=== PATIENT | female | born 1945 | race Caucasian/White ===

== ENCOUNTER 2016-04-12 12:16 | Inpatient (IN) | payer MEDICARE ==
[2016-04-12] MEDS ORDERED: ALBUTEROL NEB 2.5 MG/3 ML INH STA ×3 (14:53→17:39)
[2016-04-12] MEDS ORDERED: ALBUTEROL NEB 2.5 MG/3 ML INH ONE ×4 (15:12→17:53)
[2016-04-12] MEDS ORDERED: IOPAMIDOL-300 100 ML VIAL IVP ONE (16:41)
[2016-04-12] MEDS ORDERED: ACETAMINOPHEN 325 MG TABLET PO ONE (17:10)
[2016-04-12] MEDS ORDERED: ACETAMINOPHEN 325 MG TABLET PO STA ×2 (17:12→17:13)
[2016-04-12] MEDS ORDERED: methylPREDNISolone SUCCINATE 125 MG/2 ML VIAL IVP STA (17:24)
[2016-04-12] MEDS ORDERED: methylPREDNISolone SUCCINATE 125 MG/2 ML VIAL IVP ONE (17:33)
[2016-04-12] MEDS ORDERED: ONDANSETRON 4 MG/2 ML VIAL IVP PRN (18:54)
[2016-04-12] MEDS: IPRATROPIUM/ALBUTEROL 3 ML NEB INH SCH ×2 (19:18→23:50)
[2016-04-12] MEDS: SODIUM CHLORIDE 0.9% 1,000 ML IV SCH ×2 (20:33→21:01)
[2016-04-12] MEDS: INSULIN ASPART 300 UNIT/3 ML PEN SUBQ SCH (20:41)
[2016-04-12] MEDS ORDERED: TEMAZEPAM 15 MG CAPSULE PO PRN (20:46)
[2016-04-12] MEDS: SODIUM CHLORIDE FLUSH 0.9% 10 ML SYRINGE IVP SCH (21:02)
[2016-04-12] MEDS: BUDESONIDE 0.5 MG/2 ML NEB INH SCH (23:50)
[2016-04-13] MEDS: methylPREDNISolone SUCCINATE 125 MG/2 ML VIAL IVP SCH ×2 (05:18→17:31)
[2016-04-13] MEDS: SODIUM CHLORIDE FLUSH 0.9% 10 ML SYRINGE IVP SCH ×3 (05:18→17:31)
[2016-04-13] MEDS: POTASSIUM CHLOR 10 MEQ/100 ML 100 ML IV SCH ×3 (06:25→08:28)
[2016-04-13] MEDS ORDERED: BENZOCAINE/MENTHOL LOZENGE MM PRN (06:33)
[2016-04-13] MEDS ORDERED: PHENOL THROAT SPRAY 177 ML MM PRN (06:33)
[2016-04-13] MEDS: BUDESONIDE 0.5 MG/2 ML NEB INH SCH ×2 (07:10→21:24)
[2016-04-13] MEDS: IPRATROPIUM/ALBUTEROL 3 ML NEB INH SCH ×3 (07:10→21:24)
[2016-04-13] MEDS: ENOXAPARIN 40 MG/0.4 ML SYRINGE SUBQ SCH (08:21)
[2016-04-13] MEDS: INSULIN ASPART 300 UNIT/3 ML PEN SUBQ SCH ×4 (08:21→20:57)
[2016-04-13] MEDS: FUROSEMIDE 20 MG TABLET PO SCH (08:22)
[2016-04-13] MEDS: POLYETHYLENE GLYCOL 3350 17 GM PACKET PO SCH (08:22)
[2016-04-13] MEDS ORDERED: SODIUM CHLORIDE INHALATION 3 ML NEB ONE (10:45)
[2016-04-13] MEDS: LEVALBUTEROL 1.25 MG INH PRN (10:50)
[2016-04-14] MEDS: IPRATROPIUM/ALBUTEROL 3 ML NEB INH SCH ×4 (01:00→20:00)
[2016-04-14] MEDS: SODIUM CHLORIDE FLUSH 0.9% 10 ML SYRINGE IVP SCH ×3 (05:25→17:34)
[2016-04-14] MEDS: methylPREDNISolone SUCCINATE 125 MG/2 ML VIAL IVP SCH ×2 (05:25→17:34)
[2016-04-14] MEDS: ACETAMINOPHEN 325 MG TABLET PO PRN (06:18)
[2016-04-14] MEDS: FUROSEMIDE 20 MG TABLET PO SCH (08:08)
[2016-04-14] MEDS: INSULIN ASPART 300 UNIT/3 ML PEN SUBQ SCH ×4 (08:09→20:49)
[2016-04-14] MEDS: ENOXAPARIN 40 MG/0.4 ML SYRINGE SUBQ SCH (08:09)
[2016-04-14] MEDS: POLYETHYLENE GLYCOL 3350 17 GM PACKET PO SCH (08:10)
[2016-04-14] MEDS ORDERED: AZITHROMYCIN 250 MG TABLET PO STA (08:45)
[2016-04-14] MEDS ORDERED: AZITHROMYCIN 250 MG TABLET PO SCH (09:00)
[2016-04-14] MEDS: BUDESONIDE 0.5 MG/2 ML NEB INH SCH ×2 (09:10→20:00)
[2016-04-14] MEDS ORDERED: INSULIN ASPART 300 UNIT/3 ML PEN SUBQ SCH (11:33)
[2016-04-15] MEDS: IPRATROPIUM/ALBUTEROL 3 ML NEB INH SCH ×2 (00:05→13:00)
[2016-04-15] MEDS: methylPREDNISolone SUCCINATE 125 MG/2 ML VIAL IVP SCH ×2 (06:25→17:10)
[2016-04-15] MEDS: SODIUM CHLORIDE FLUSH 0.9% 10 ML SYRINGE IVP SCH ×3 (06:42→20:58)
[2016-04-15] MEDS ORDERED: LABETALOL 20 MG/4 ML SYRINGE IVP ONE (07:11)
[2016-04-15] MEDS: INSULIN ASPART 300 UNIT/3 ML PEN SUBQ SCH ×4 (08:39→20:57)
[2016-04-15] MEDS: AZITHROMYCIN 250 MG TABLET PO SCH (08:40)
[2016-04-15] MEDS: FUROSEMIDE 20 MG TABLET PO SCH (08:40)
[2016-04-15] MEDS: ENOXAPARIN 40 MG/0.4 ML SYRINGE SUBQ SCH (08:40)
[2016-04-15] MEDS: POLYETHYLENE GLYCOL 3350 17 GM PACKET PO SCH (08:40)
[2016-04-15] MEDS: CALCIUM CARBONATE CHEW 500 MG TABLET PO SCH ×2 (10:34→20:56)
[2016-04-15] MEDS: CHOLECALCIFEROL 1,000 UNIT TABLET PO SCH (10:34)
[2016-04-15] MEDS: BUDESONIDE 0.5 MG/2 ML NEB INH SCH (13:00)
[2016-04-15] MEDS: SACCHAROMYCES BOULARDII 250 MG CAPSULE PO SCH (17:09)
[2016-04-15] MEDS: ACETAMINOPHEN 325 MG TABLET PO PRN (18:01)
[2016-04-15] MEDS: LEVALBUTEROL 1.25 MG INH PRN (18:22)
[2016-04-16] MEDS: SODIUM CHLORIDE FLUSH 0.9% 10 ML SYRINGE IVP SCH ×3 (05:27→22:53)
[2016-04-16] MEDS: methylPREDNISolone SUCCINATE 125 MG/2 ML VIAL IVP SCH (05:27)
[2016-04-16] MEDS: BUDESONIDE 0.5 MG/2 ML NEB INH SCH ×3 (07:00→22:38)
[2016-04-16] MEDS: IPRATROPIUM/ALBUTEROL 3 ML NEB INH SCH ×5 (07:00→22:39)
[2016-04-16] MEDS: INSULIN ASPART 300 UNIT/3 ML PEN SUBQ SCH ×4 (08:33→22:52)
[2016-04-16] MEDS: SACCHAROMYCES BOULARDII 250 MG CAPSULE PO SCH ×2 (08:34→17:29)
[2016-04-16] MEDS: CALCIUM CARBONATE CHEW 500 MG TABLET PO SCH ×2 (08:34→22:51)
[2016-04-16] MEDS: AZITHROMYCIN 250 MG TABLET PO SCH (08:34)
[2016-04-16] MEDS: POLYETHYLENE GLYCOL 3350 17 GM PACKET PO SCH (08:35)
[2016-04-16] MEDS: ENOXAPARIN 40 MG/0.4 ML SYRINGE SUBQ SCH (08:35)
[2016-04-16] MEDS: CHOLECALCIFEROL 1,000 UNIT TABLET PO SCH (08:35)
[2016-04-16] MEDS: ACETAMINOPHEN 325 MG TABLET PO PRN (08:51)
[2016-04-16] MEDS ORDERED: DEXTROSE 50% ABBOJECT 25 GM/50 ML SYRINGE IVP PRN (15:29)
[2016-04-16] MEDS ORDERED: GLUCAGON 1 MG/ML VIAL SUBQ PRN (15:29)
[2016-04-16] MEDS ORDERED: DEXTROSE 5% 1,000 ML IV PRN (15:29)
[2016-04-16] MEDS ORDERED: DEXTROSE GEL 37.5 GM TUBE PO PRN (15:29)
[2016-04-16] MEDS ORDERED: SODIUM CHLORIDE 0.9% 1,000 ML IV SCH (17:00)
[2016-04-16] MEDS ORDERED: INSULIN GLARGINE 300 UNIT/3 ML PEN SUBQ SCH (21:00)
[2016-04-17] MEDS: BUDESONIDE 0.5 MG/2 ML NEB INH SCH ×3 (00:21→20:00)
[2016-04-17] MEDS: IPRATROPIUM/ALBUTEROL 3 ML NEB INH SCH ×5 (00:25→20:00)
[2016-04-17] MEDS: SODIUM CHLORIDE FLUSH 0.9% 10 ML SYRINGE IVP PRN (00:28)
[2016-04-17] MEDS: ACETAMINOPHEN 325 MG TABLET PO PRN ×3 (00:28→21:02)
[2016-04-17] MEDS: SODIUM CHLORIDE FLUSH 0.9% 10 ML SYRINGE IVP SCH ×3 (06:45→20:55)
[2016-04-17] MEDS: SACCHAROMYCES BOULARDII 250 MG CAPSULE PO SCH ×2 (08:58→17:10)
[2016-04-17] MEDS: INSULIN ASPART 300 UNIT/3 ML PEN SUBQ SCH ×4 (08:58→20:54)
[2016-04-17] MEDS: predniSONE 20 MG TABLET PO SCH (08:58)
[2016-04-17] MEDS: CHOLECALCIFEROL 1,000 UNIT TABLET PO SCH (08:59)
[2016-04-17] MEDS: ENOXAPARIN 40 MG/0.4 ML SYRINGE SUBQ SCH (08:59)
[2016-04-17] MEDS: CALCIUM CARBONATE CHEW 500 MG TABLET PO SCH ×2 (08:59→20:52)
[2016-04-17] MEDS: AZITHROMYCIN 250 MG TABLET PO SCH (08:59)
[2016-04-17] MEDS: POLYETHYLENE GLYCOL 3350 17 GM PACKET PO SCH (08:59)
[2016-04-17] MEDS ORDERED: INSULIN GLARGINE 300 UNIT/3 ML PEN SUBQ SCH (21:00)
[2016-04-17] MEDS: guaiFENesin/DEXTROMETHORPHAN 10 ML UDC PO PRN (21:03)
[2016-04-17] MEDS ORDERED: DEXTROSE GEL 37.5 GM TUBE PO PRN (23:43)
[2016-04-17] MEDS ORDERED: GLUCAGON 1 MG/ML VIAL SUBQ PRN (23:43)
[2016-04-17] MEDS ORDERED: DEXTROSE 50% ABBOJECT 25 GM/50 ML SYRINGE IVP PRN (23:43)
[2016-04-17] MEDS ORDERED: DEXTROSE 5% 1,000 ML IV PRN (23:43)
[2016-04-18] MEDS: ACETAMINOPHEN 325 MG TABLET PO PRN ×2 (01:19→05:03)
[2016-04-18] MEDS: SODIUM CHLORIDE FLUSH 0.9% 10 ML SYRINGE IVP SCH ×3 (05:03→21:45)
[2016-04-18] MEDS: IPRATROPIUM/ALBUTEROL 3 ML NEB INH SCH ×2 (08:21→12:45)
[2016-04-18] MEDS: BUDESONIDE 0.5 MG/2 ML NEB INH SCH ×2 (08:21→22:15)
[2016-04-18] MEDS: AZITHROMYCIN 250 MG TABLET PO SCH (10:04)
[2016-04-18] MEDS: SACCHAROMYCES BOULARDII 250 MG CAPSULE PO SCH ×2 (10:04→17:55)
[2016-04-18] MEDS: CALCIUM CARBONATE CHEW 500 MG TABLET PO SCH ×2 (10:04→21:42)
[2016-04-18] MEDS: predniSONE 20 MG TABLET PO SCH (10:05)
[2016-04-18] MEDS: ENOXAPARIN 40 MG/0.4 ML SYRINGE SUBQ SCH (10:05)
[2016-04-18] MEDS: POLYETHYLENE GLYCOL 3350 17 GM PACKET PO SCH (10:05)
[2016-04-18] MEDS: CHOLECALCIFEROL 1,000 UNIT TABLET PO SCH (10:05)
[2016-04-18] MEDS: INSULIN ASPART 300 UNIT/3 ML PEN SUBQ SCH ×4 (10:06→21:43)
[2016-04-18] MEDS ORDERED: ALBUTEROL NEB 2.5 MG/3 ML INH PRN (16:12)
[2016-04-18] MEDS: LEVALBUTEROL 1.25 MG INH SCH ×2 (16:59→22:15)
[2016-04-18] MEDS: IPRATROPIUM 0.2 MG/ML NEB INH SCH ×2 (16:59→22:15)
[2016-04-18] MEDS: INSULIN GLARGINE 300 UNIT/3 ML PEN SUBQ SCH (21:44)
[2016-04-18] MEDS: guaiFENesin/DEXTROMETHORPHAN 10 ML UDC PO PRN (21:44)
[2016-04-18] MEDS ORDERED: SODIUM CHLORIDE INHALATION 3 ML NEB ONE (21:57)
[2016-04-19] MEDS: IPRATROPIUM 0.2 MG/ML NEB INH SCH ×4 (02:45→20:00)
[2016-04-19] MEDS: LEVALBUTEROL 1.25 MG INH SCH ×4 (02:45→20:00)
[2016-04-19] MEDS: SODIUM CHLORIDE FLUSH 0.9% 10 ML SYRINGE IVP SCH ×3 (06:34→21:44)
[2016-04-19] MEDS: POLYETHYLENE GLYCOL 3350 17 GM PACKET PO SCH (08:44)
[2016-04-19] MEDS: ACETAMINOPHEN 325 MG TABLET PO PRN (08:46)
[2016-04-19] MEDS: ENOXAPARIN 40 MG/0.4 ML SYRINGE SUBQ SCH (08:46)
[2016-04-19] MEDS: predniSONE 20 MG TABLET PO SCH (08:47)
[2016-04-19] MEDS: CHOLECALCIFEROL 1,000 UNIT TABLET PO SCH (08:47)
[2016-04-19] MEDS: CALCIUM CARBONATE CHEW 500 MG TABLET PO SCH ×2 (08:47→21:42)
[2016-04-19] MEDS: AZITHROMYCIN 250 MG TABLET PO SCH (08:47)
[2016-04-19] MEDS: SACCHAROMYCES BOULARDII 250 MG CAPSULE PO SCH ×2 (08:47→17:27)
[2016-04-19] MEDS: INSULIN ASPART 300 UNIT/3 ML PEN SUBQ SCH ×4 (08:48→21:42)
[2016-04-19] MEDS: BUDESONIDE 0.5 MG/2 ML NEB INH SCH ×2 (10:20→20:00)
[2016-04-19] MEDS: CIPROFLOXACIN 400 MG/200 ML 200 ML IV SCH (14:41)
[2016-04-19] MEDS: INSULIN GLARGINE 300 UNIT/3 ML PEN SUBQ SCH (21:43)
[2016-04-20] MEDS: IPRATROPIUM 0.2 MG/ML NEB INH SCH ×4 (01:00→20:00)
[2016-04-20] MEDS: LEVALBUTEROL 1.25 MG INH SCH ×4 (01:00→20:00)
[2016-04-20] MEDS: CIPROFLOXACIN 400 MG/200 ML 200 ML IV SCH ×2 (02:29→18:48)
[2016-04-20] MEDS: SODIUM CHLORIDE FLUSH 0.9% 10 ML SYRINGE IVP PRN (02:30)
[2016-04-20] MEDS: ACETAMINOPHEN 325 MG TABLET PO PRN (05:04)
[2016-04-20] MEDS: SODIUM CHLORIDE FLUSH 0.9% 10 ML SYRINGE IVP SCH ×3 (06:07→21:45)
[2016-04-20] MEDS: BUDESONIDE 0.5 MG/2 ML NEB INH SCH ×2 (07:27→20:00)
[2016-04-20] MEDS: INSULIN ASPART 300 UNIT/3 ML PEN SUBQ SCH ×4 (08:17→21:44)
[2016-04-20] MEDS: CALCIUM CARBONATE CHEW 500 MG TABLET PO SCH ×2 (09:25→21:45)
[2016-04-20] MEDS: CHOLECALCIFEROL 1,000 UNIT TABLET PO SCH (09:26)
[2016-04-20] MEDS: SACCHAROMYCES BOULARDII 250 MG CAPSULE PO SCH ×2 (09:26→17:51)
[2016-04-20] MEDS: FAMOTIDINE 20 MG TABLET PO SCH ×2 (09:26→21:44)
[2016-04-20] MEDS: ENOXAPARIN 40 MG/0.4 ML SYRINGE SUBQ SCH (09:27)
[2016-04-20] MEDS: POLYETHYLENE GLYCOL 3350 17 GM PACKET PO SCH (09:27)
[2016-04-20] MEDS: predniSONE 20 MG TABLET PO SCH (09:31)
[2016-04-20] MEDS: INSULIN GLARGINE 300 UNIT/3 ML PEN SUBQ SCH (21:44)
[2016-04-21] MEDS: LEVALBUTEROL 1.25 MG INH SCH ×3 (00:45→15:47)
[2016-04-21] MEDS: IPRATROPIUM 0.2 MG/ML NEB INH SCH ×3 (00:45→15:46)
[2016-04-21] MEDS: CIPROFLOXACIN 400 MG/200 ML 200 ML IV SCH (02:15)
[2016-04-21] MEDS: SODIUM CHLORIDE FLUSH 0.9% 10 ML SYRINGE IVP PRN (02:16)
[2016-04-21] MEDS: SODIUM CHLORIDE FLUSH 0.9% 10 ML SYRINGE IVP SCH (06:59)
[2016-04-21] MEDS: INSULIN ASPART 300 UNIT/3 ML PEN SUBQ SCH (08:37)
[2016-04-21] MEDS: CHOLECALCIFEROL 1,000 UNIT TABLET PO SCH (08:43)
[2016-04-21] MEDS: FAMOTIDINE 20 MG TABLET PO SCH (08:44)
[2016-04-21] MEDS: predniSONE 20 MG TABLET PO SCH (08:44)
[2016-04-21] MEDS: CALCIUM CARBONATE CHEW 500 MG TABLET PO SCH (08:45)
[2016-04-21] MEDS: ENOXAPARIN 40 MG/0.4 ML SYRINGE SUBQ SCH (08:45)
[2016-04-21] MEDS: POLYETHYLENE GLYCOL 3350 17 GM PACKET PO SCH (08:45)
[2016-04-21] MEDS: SACCHAROMYCES BOULARDII 250 MG CAPSULE PO SCH (08:45)
[2016-04-21] MEDS: BUDESONIDE 0.5 MG/2 ML NEB INH SCH (09:25)
== END 2016-04-21 13:50 | DRG 189 ==
DX: J96.21 Acute and chronic respiratory failure with hypoxia (principal); J44.9 Chronic obstructive pulmonary disease, unspecified; R09.02 Hypoxemia; I50.9 Heart failure, unspecified; E78.00 Pure hypercholesterolemia, unspecified; M19.90 Unspecified osteoarthritis, unspecified site; J15.8 Pneumonia due to other specified bacteria; J44.0 Chronic obstructive pulmonary disease with (acute) lower respiratory infection; E11.9 Type 2 diabetes mellitus without complications; R53.81 Other malaise; Z99.81 Dependence on supplemental oxygen; F32.9 Major depressive disorder, single episode, unspecified; K43.9 Ventral hernia without obstruction or gangrene; Z66 Do not resuscitate; Z86.718 Personal history of other venous thrombosis and embolism; G89.29 Other chronic pain; M54.9 Dorsalgia, unspecified; M16.0 Bilateral primary osteoarthritis of hip; E66.9 Obesity, unspecified; Z68.35 Body mass index [BMI] 35.0-35.9, adult; E78.5 Hyperlipidemia, unspecified; H40.9 Unspecified glaucoma; R35.0 Frequency of micturition; Z87.891 Personal history of nicotine dependence; Z85.3 Personal history of malignant neoplasm of breast; Z79.84 Long term (current) use of oral hypoglycemic drugs; Z79.51 Long term (current) use of inhaled steroids; Z79.899 Other long term (current) drug therapy; Z51.5 Encounter for palliative care

== ENCOUNTER 2016-04-21 | Outpatient (CLI) | payer MEDICARE | END 2016-04-21 13:47 | CPT/HCPCS: A0170; A0425; A0428 ==

== ENCOUNTER 2018-02-10 08:04 | Outpatient (CLI) | payer MEDICARE | END 2018-02-10 08:05 | disposition EMS.NT | LOC: EMS 08:04 | PROVIDERS: ATTEND Surgery | DX: M25.559 Pain in unspecified hip (principal); W10.8XXA Fall (on) (from) other stairs and steps, initial encounter; Y92.009 Unspecified place in unspecified non-institutional (private) residence as the place of occurrence of the external cause ==

== ENCOUNTER 2018-02-16 08:28 | Outpatient (CLI) | payer MEDICARE | END 2018-02-16 08:29 | disposition critical access hospital (66) | LOC: EMS 08:28 | PROVIDERS: ATTEND Surgery | DX: R06.02 Shortness of breath (principal) | CPT/HCPCS: A0425; A0427 ==

== ENCOUNTER 2018-02-16 09:15 | Inpatient (IN) | payer MEDICARE ==
[2018-02-16] MEDS ORDERED: IPRATROPIUM/ALBUTEROL 3 ML NEB INH STA (11:03)
--- NOTE | 2018-02-16 11:30 | XRAY Report ---
Reason: Dyspnea Procedure Date: 02/16/2018 Accession Number: [id number] / [id number] Procedure: XR - Chest 1 View X-Ray CPT Code: 79785 FULL RESULT: EXAM: CHEST RADIOGRAPHY EXAM DATE: 02/16/2018 11:19 AM. CLINICAL HISTORY: Dyspnea. COMPARISON: CHEST 2 VIEW PA/LAT 04/19/2016 3:19 PM. TECHNIQUE: 1 view. FINDINGS: Lungs/Pleura: No focal opacities evident. No pleural effusion. No pneumothorax. Stable borderline prominence of the pulmonary vascular pattern without greta edema. Mediastinum: Within exam limitations, the cardiomediastinal contour is normal. Other: None. IMPRESSION: Mild increase in intravascular fluid volume without greta edema. No infiltrates. RADIA
[2018-02-16] MEDS ORDERED: BACITRACIN OINT TOP ONE (11:34)
[2018-02-16 11:53] LABS: BASOPHILS # (AUTO) 0.1 10^3/uL (0.0-0.1); BASOPHILS % (AUTO) 0.7 %; EOSINOPHILS # (AUTO) 0.2 10^3/uL (0.0-0.7); EOSINOPHILS % (AUTO) 1.2 %; HGB - HEMOGLOBIN 13.2 g/dL (12.0-16.0); LYMPHOCYTES # (AUTO) 0.7 10^3/uL (1.5-3.5); LYMPHOCYTES % (AUTO) 5.1 %; MEAN CORPUSCULAR HEMOGLOBIN 29.3 pg (27.0-31.0); MEAN CORPUSCULAR VOLUME 88.8 fL (81.0-99.0); MEAN PLATELET VOLUME 8.3 fL (7.9-10.8); MONOCYTES # (AUTO) 0.5 10^3/uL (0.0-1.0); MONOCYTES % (AUTO) 3.3 %; NEUTROPHILS # (AUTO) 12.9 10^3/uL (1.5-6.6); NEUTROPHILS % (AUTO) 89.7 %; PLT - PLATELET COUNT 360 10^3/uL (130-450); RED CELL DISTRIBUTION WIDTH 13.4 % (12.0-15.0); WHITE BLOOD COUNT 14.4 x10^3/uL (4.8-10.8)
[2018-02-16 12:07] LABS: ALBUMIN 3.9 g/dL (3.2-5.5); BILIRUBIN,TOTAL 0.5 mg/dL (0.2-1.0); CALCIUM 9.4 mg/dL (8.5-10.3); CREATININE 1.5 mg/dL (0.4-1.0); TOTAL PROTEIN 7.9 g/dL (6.7-8.2)
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
[2018-02-16] MEDS ORDERED: SODIUM CHLORIDE 0.9% 1,000 ML IV ONE (12:20)
[2018-02-16] MEDS ORDERED: ONDANSETRON 4 MG/2 ML VIAL IVP PRN (13:02)
[2018-02-16] MEDS ORDERED: TEMAZEPAM 15 MG CAPSULE PO PRN (13:02)
[2018-02-16 13:05] LABS: BILIRUBIN,URINE NEGATIVE (NEGATIVE); GLUCOSE, URINE (UA) NEGATIVE (NEGATIVE); KETONES,URINE (UA) NEGATIVE (NEGATIVE); LEUKOCYTE ESTERASE, URINE LARGE (NEGATIVE); NITRITE,URINE NEGATIVE (NEGATIVE); OCCULT BLOOD,URINE NEGATIVE (NEGATIVE); PROTEIN,URINE TRACE mg/dL (NEGATIVE); UROBILINOGEN,URINE 0.2 (NORMAL) E.U./dL (NORMAL)
[2018-02-16 13:09] LABS: CLARITY,URINE CLOUDY (CLEAR)
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
[2018-02-16 13:30] LABS: BACTERIA,URINE Many /HPF (None Seen); RBC,URINE 0-5 /HPF (0-5); SQUAMOUS EPITHELIAL CELL,UR MANY Squamous (<= Few)
[2018-02-16] MEDS: SODIUM CHLORIDE 0.9% 1,000 ML IV SCH (15:03)
[2018-02-16] MEDS: IPRATROPIUM/ALBUTEROL 3 ML NEB INH PRN (16:46)
[2018-02-16] MEDS: INSULIN ASPART 300 UNIT/3 ML PEN SUBQ SCH ×2 (17:05→21:23)
[2018-02-16] MEDS: AMPICILLIN 1 GM in SODIUM CHLORIDE 0.9% MINIBAG 100 ML IV SCH ×2 (18:41→23:55)
[2018-02-16] MEDS: SODIUM CHLORIDE FLUSH 0.9% 10 ML SYRINGE IVP SCH (18:43)
[2018-02-16] MEDS: FAMOTIDINE 20 MG TABLET PO SCH (21:22)
[2018-02-16] MEDS: INSULIN GLARGINE 300 UNIT/3 ML PEN SUBQ SCH (21:24)
[2018-02-16] MEDS: BUDESONIDE 0.5 MG/2 ML NEB INH SCH (22:41)
[2018-02-16] MEDS: IPRATROPIUM/ALBUTEROL 3 ML NEB INH SCH (22:42)
[2018-02-16] MEDS: ACETAMINOPHEN 325 MG TABLET PO PRN (23:53)
[2018-02-17] MEDS: NYSTATIN POWDER 15 GM TOP SCH ×3 (00:31→20:40)
[2018-02-17] MEDS: IPRATROPIUM/ALBUTEROL 3 ML NEB INH PRN (02:00)
[2018-02-17] MEDS: SODIUM CHLORIDE FLUSH 0.9% 10 ML SYRINGE IVP SCH ×3 (02:24→18:39)
[2018-02-17] MEDS: SODIUM CHLORIDE 0.9% 1,000 ML IV SCH (02:29)
[2018-02-17] MEDS: ACETAMINOPHEN 325 MG TABLET PO PRN ×3 (06:06→20:30)
[2018-02-17] MEDS: AMPICILLIN 1 GM in SODIUM CHLORIDE 0.9% MINIBAG 100 ML IV SCH ×3 (06:07→18:31)
[2018-02-17 06:30] LABS: BASOPHILS # (AUTO) 0.1 10^3/uL (0.0-0.1); BASOPHILS % (AUTO) 0.7 %; EOSINOPHILS # (AUTO) 0.3 10^3/uL (0.0-0.7); EOSINOPHILS % (AUTO) 3.6 %; LYMPHOCYTES % (AUTO) 11.9 %; MEAN CORPUSCULAR HEMOGLOBIN 29.1 pg (27.0-31.0); MEAN CORPUSCULAR VOLUME 90.9 fL (81.0-99.0); MEAN PLATELET VOLUME 8.1 fL (7.9-10.8); MONOCYTES # (AUTO) 0.6 10^3/uL (0.0-1.0); MONOCYTES % (AUTO) 7.6 %; NEUTROPHILS # (AUTO) 6.1 10^3/uL (1.5-6.6); NEUTROPHILS % (AUTO) 76.2 %; PLT - PLATELET COUNT 288 10^3/uL (130-450); RED BLOOD COUNT 4.11 10^6/uL (4.20-5.40); RED CELL DISTRIBUTION WIDTH 13.4 % (12.0-15.0); WHITE BLOOD COUNT 8.1 x10^3/uL (4.8-10.8)
[2018-02-17 06:49] LABS: ALBUMIN 3.2 g/dL (3.2-5.5); BILIRUBIN,TOTAL 0.4 mg/dL (0.2-1.0); CREATININE 0.8 mg/dL (0.4-1.0); MAGNESIUM 2.3 mg/dL (1.7-2.8); PHOSPHORUS 3.6 mg/dL (2.5-4.6); TOTAL PROTEIN 6.5 g/dL (6.7-8.2)
[2018-02-17] MEDS: BUDESONIDE 0.5 MG/2 ML NEB INH SCH ×2 (07:52→21:20)
[2018-02-17] MEDS: IPRATROPIUM/ALBUTEROL 3 ML NEB INH SCH ×4 (07:52→21:20)
[2018-02-17 07:55] LABS: HB2 TOTAL 12.4 g/dL; HEMOGLOBIN A1C 1.15 g/dL; HEMOGLOBIN A1C % 10.6 % (4.6-6.2)
[2018-02-17] MEDS ORDERED: INSULIN ASPART 300 UNIT/3 ML PEN SUBQ SCH ×2 (08:00→08:31)
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
[2018-02-17] MEDS: FAMOTIDINE 20 MG TABLET PO SCH ×2 (08:52→20:30)
[2018-02-17] MEDS: POLYETHYLENE GLYCOL 3350 17 GM PACKET PO SCH (08:52)
[2018-02-17] MEDS: CHOLECALCIFEROL 5,000 UNIT CAPSULE PO SCH (08:52)
[2018-02-17] MEDS: MULTIVITAMIN TABLET PO SCH (08:52)
[2018-02-17] MEDS: ENOXAPARIN 40 MG/0.4 ML SYRINGE SUBQ SCH (08:53)
[2018-02-17] MEDS: INSULIN ASPART 300 UNIT/3 ML PEN SUBQ SCH ×3 (12:31→20:34)
[2018-02-17] MEDS: POTASSIUM CHLORIDE 10 MEQ CAPSULE PO SCH (20:30)
[2018-02-17] MEDS: INSULIN GLARGINE 300 UNIT/3 ML PEN SUBQ SCH (20:37)
[2018-02-18] MEDS: ACETAMINOPHEN 325 MG TABLET PO PRN ×3 (01:44→22:54)
[2018-02-18] MEDS: AMPICILLIN 1 GM in SODIUM CHLORIDE 0.9% MINIBAG 100 ML IV SCH ×3 (01:45→11:31)
[2018-02-18] MEDS: SODIUM CHLORIDE FLUSH 0.9% 10 ML SYRINGE IVP PRN ×2 (02:27→06:38)
[2018-02-18] MEDS: SODIUM CHLORIDE FLUSH 0.9% 10 ML SYRINGE IVP SCH ×4 (02:27→23:46)
[2018-02-18 06:32] LABS: BASOPHILS # (AUTO) 0.1 10^3/uL (0.0-0.1); BASOPHILS % (AUTO) 1.1 %; EOSINOPHILS # (AUTO) 0.3 10^3/uL (0.0-0.7); HGB - HEMOGLOBIN 11.9 g/dL (12.0-16.0); LYMPHOCYTES % (AUTO) 15.2 %; MEAN CORPUSCULAR HEMOGLOBIN 29.5 pg (27.0-31.0); MEAN CORPUSCULAR HGB CONC 32.3 g/dL (32.0-36.0); MEAN CORPUSCULAR VOLUME 91.3 fL (81.0-99.0); MONOCYTES # (AUTO) 0.6 10^3/uL (0.0-1.0); MONOCYTES % (AUTO) 9.2 %; NEUTROPHILS # (AUTO) 4.7 10^3/uL (1.5-6.6); NEUTROPHILS % (AUTO) 70.5 %; PLT - PLATELET COUNT 262 10^3/uL (130-450); RED BLOOD COUNT 4.05 10^6/uL (4.20-5.40); RED CELL DISTRIBUTION WIDTH 13.5 % (12.0-15.0); WHITE BLOOD COUNT 6.7 x10^3/uL (4.8-10.8)
[2018-02-18 06:45] LABS: ALBUMIN 3.2 g/dL (3.2-5.5); ALBUMIN/GLOBULIN RATIO 0.9 (1.0-2.2); BILIRUBIN,TOTAL 0.4 mg/dL (0.2-1.0); CALCIUM 8.9 mg/dL (8.5-10.3); CREATININE 0.7 mg/dL (0.4-1.0); TOTAL PROTEIN 6.6 g/dL (6.7-8.2)
[2018-02-18] MEDS: IPRATROPIUM/ALBUTEROL 3 ML NEB INH SCH ×4 (07:47→18:20)
[2018-02-18] MEDS: BUDESONIDE 0.5 MG/2 ML NEB INH SCH ×2 (07:47→19:43)
[2018-02-18] MEDS: INSULIN ASPART 300 UNIT/3 ML PEN SUBQ SCH ×4 (09:07→21:06)
[2018-02-18] MEDS: FUROSEMIDE 20 MG TABLET PO SCH ×2 (09:08→17:03)
[2018-02-18] MEDS: MULTIVITAMIN TABLET PO SCH (09:08)
[2018-02-18] MEDS: CHOLECALCIFEROL 5,000 UNIT CAPSULE PO SCH (09:09)
[2018-02-18] MEDS: ENOXAPARIN 40 MG/0.4 ML SYRINGE SUBQ SCH (09:09)
[2018-02-18] MEDS: DOCUSATE SODIUM 250 MG CAPSULE PO SCH (09:09)
[2018-02-18] MEDS: FAMOTIDINE 20 MG TABLET PO SCH ×2 (09:09→20:53)
[2018-02-18] MEDS: POTASSIUM CHLORIDE 10 MEQ CAPSULE PO SCH ×2 (09:09→20:53)
[2018-02-18] MEDS: SENNA 8.6 MG TABLET PO SCH (09:09)
[2018-02-18] MEDS: NYSTATIN POWDER 15 GM TOP SCH ×2 (09:10→21:07)
[2018-02-18] MEDS: POLYETHYLENE GLYCOL 3350 17 GM PACKET PO SCH (09:10)
[2018-02-18] MEDS ORDERED: INSULIN GLARGINE 300 UNIT/3 ML PEN SUBQ SCH ×2 (13:46→21:00)
[2018-02-18] MEDS ORDERED: levoFLOXacin 250 MG TABLET PO SCH ×3 (13:47→16:00)
--- NOTE | 2018-02-18 13:56 | Discharge Plan ---
"Discharge Plan for SNF / [facility] - Discharge Plan And Transition Orders Disposition: 03 SNF DC/Xfer Condition: Good Allergies and Adverse Reactions: Allergies Allergy/AdvReac Type Severity Reaction Status Date / Time naproxen sodium * Allergy Severe Hives Verified 02/16/18 09:20 [From Aleve] codeine Allergy Unknown Unknown Verified 02/16/18 09:20 hydrocodone Allergy Unknown Unknown Verified 02/16/18 09:20 oxycodone [Oxycodone] Allergy Unknown Unknown Verified 02/16/18 09:20 simvastatin [From Zocor] Allergy Unknown Unknown Verified 02/16/18 09:20 - SNF / [facility] Transition Orders Admit to (Facility): [facility] Under the care of (Name): Dr. Lance Discharge Diagnosis: Pyelonephritis (N12) new on this admission, sample not cultured. Continue Levofloxacin and a probiotic. COPD exacerbation (J44.1) chronic, continue with chronic oxygen use at 2L. Oxygen dependent (Z99.81) 2L nasal cannula, patient to bring their supply from home for transport. Dehydration (E86.0) resolved. Dementia (F03.90) advanced, stable. No combative behaviors. Chronic back pain (M54.9) chronic, contributing factor of obesity. Diabetes mellitus type 2 in obese (E11.69) chronic stable. Chronic diastolic CHF (congestive heart failure), NYHA class 3 (I50.32) chronic, stable. Fall (W19.XXXA) chronic, no falls since coming to the hospital, but was found down at home. Medicare Certification Statement: I certify that [facility] is medically necessary on a continuing basis for any of the conditions for which she/he is receiving care during hospitalization. Notify PCP of admission and forward orders to primary provider for signature. Weight on admission and: Weekly Other Notification Orders: Call PCP immediately if patient develops dyspnea, chest pain/tightness or edema. House Bowel Program: Yes Additional Bowel Program Orders: If no BM after 2 days, nurse may give M.O.M. 30ml PO PRN and/or ducolax Supp 1 [place] and/or DEREJE 250mg P.O., and/or senna 1-2 tabs PO. On day 3 nurse may give repeat above order until residents constipation is resolved. Annual Influenza Vaccine (between Oct 28 and May 27): Yes Two-step PPD per [facility] [id number] or approved exception documents: Yes Oxygen Orders: Continuous oxygen at 2L per nasal cannula to keep oxygen saturation greater than 90%. Lab Tests or X-ray Orders: Weekly BMP, CBC or as needed. Medication Orders: PLEASE REFER TO THE DISCHARGE MEDICATION LIST. Insulin Orders?: No - Medications New Prescriptions: levoFLOXacin [Levaquin] 500 mg PO DAILY #14 tablet Nystatin [Nystop] 1 applic TOP BID #1 bottle Saccharomyces Boulardii [Florastor] 250 mg PO BID #60 capsule - Diet Type: Geriatric (diabetic) Texture: Regular Liquids: Thin May have monthly special meal: Yes - Therapies | Activity Therapy: Evaluation | Treat if indicated: PT, OT Rehabilitation Potential: Return to independent living, Maintain present ADL Functional Activity: Activity as Tolerated Weight Bearing: Full Weight Assistance Devices: Walker"
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
--- NOTE | 2018-02-18 15:20 | PROVIDER PROGRESS NOTE ---
Subjective - Prog Note Date Prog Note Date: 02/18/18 Prog Note Time: 15:19 - Subjective Pt reports feeling: Improved Subjective: Fouzia complains to tenderness in her ankles and admits to a great appetite. She denies chest pain, nausea, vomiting, rashes, bleeding, dizziness or a productive cough. Current Medications - Current Medications Current Medications: Active Medications: Acetaminophen (Tylenol) 650 mg PO Q4HR PRN Albuterol/Ipratropium (Duoneb) 3 ml INH RTQ4H PRN Albuterol/Ipratropium (Duoneb) 3 ml INH RTQID JOEL Budesonide (Pulmicort) 0.5 mg INH RTBID JOEL Cholecalciferol (Vitamin D3) 5,000 unit PO DAILY JOEL Enoxaparin Sodium (Lovenox) 40 mg SUBQ DAILY JOEL Famotidine (Pepcid) 20 mg PO BID JOEL Furosemide (Lasix) 60 mg PO BIDWM JOEL to start 02/18/18 Florastor 250 mg BID PO JOEL Levofloxacin 500mg daily PO to start 02/18/18 Insulin Aspart (Novolog) 3 - 11 unit SUBQ 0800,1200,1700,2100 JOEL; Protocol Insulin Glargine (Lantus Solostar) 10 unit SUBQ QPM JOEL Multivitamins (Theragran) 1 tab PO DAILY JOEL Nystatin (Nystop) 1 applic TOP BID JOEL Polyethylene Glycol (Miralax) 17 gm PO DAILY JOEL Potassium Chloride (Micro-K) 10 meq PO BID JOEL Temazepam (Restoril) 15 mg PO QPM PRN HOME meds: Furosemide [Lasix] 60 mg PO BID 04/23/15 Potassium Chloride 10 meq PO BID 04/23/15 Ipratropium/Albuterol [Duoneb] 3 ml NEB QID PRN 04/24/15 metFORMIN [Glucophage] 500 mg PO BIDWM 04/24/15 Ascorbic Acid [Vitamin C] 500 mg PO DAILY 04/13/16 Multivitamin [Theragran] 1 tab PO DAILY 04/13/16 Cholecalciferol (Vitamin D3) [Vitamin D3] 5,000 units PO DAILY 02/16/18 Objective - Vital Signs/Intake & Output Reviewed Vital Signs: Yes Vital Signs: Vital Signs x48h Pulse Pulse Pulse Resp Resp Resp BP 12/23/18 12:08 80 16 02/18/18 10:28 79 24 134/65 H 02/18/18 10:20 79 20 16 02/18/18 07:48 82 15 BP Pulse Ox Pulse Ox 02/18/18 12:08 02/18/18 10:28 02/18/18 10:20 134/65 H 86 L 90 L 02/18/18 07:48 Intake & Output: Intake & Output 02/15/18 02/16/18 02/17/18 02/18/18 23:59 23:59 23:59 23:59 Intake Total 1300 3650.000 1710 Output Total 900 450 Balance 1300 2750.000 1260 - Objective General Appearance: positive: No acute distress, Alert Eyes Bilateral: positive: PERRL Eyes: OU Conjunctivae pale ENT: positive: Pharynx nml, No signs of dehydration Neck: positive: Thyroid nml, No JVD, Trachea midline Respiratory: positive: Chest non-tender, No respiratory distress, Rhonchi (scattered crackles) Cardiovascular: positive: Regular rate & rhythm, No gallop, Systolic murmur Peripheral Pulses: 1+ Radial (R), 1+ Radial (L) Abdomen: positive: Non-tender, Nml bowel sounds, Other (obese, soft) Back: positive: Nml inspection Skin: positive: Color nml, No rash, Warm, Dry Extremities: positive: Non-tender, Pedal edema (chronic, BLE), Joint swelling Neurologic/Psychiatric: positive: Disoriented to place, Disoriented to time, Weakness, Sensory loss, Slurred/abnml speech, Depressed mood/affect Reflexes: Bicep (R): 2+, Bicep (L): 2+ - Lab Results Fish Bones: 02/18/18 06:20 02/18/18 06:20 Other Labs: Lab Results x24hrs 02/18/18 02/18/18 Range/Units 06:20 06:20 WBC 6.7 (4.8-10.8) x10^3/uL RBC 4.05 L (4.20-5.40) 10^6/uL Hgb 11.9 L (12.0-16.0) g/dL Hct 36.9 L (37.0-47.0) % MCV 91.3 (81.0-99.0) fL MCH 29.5 (27.0-31.0) pg MCHC 32.3 (32.0-36.0) g/dL RDW 13.5 (12.0-15.0) % Plt Count 262 (130-450) 10^3/uL MPV 8.0 (7.9-10.8) fL Neut # (Auto) 4.7 (1.5-6.6) 10^3/uL Lymph # (Auto) 1.0 L (1.5-3.5) 10^3/uL Hyde # (Auto) 0.6 (0.0-1.0) 10^3/uL Eos # (Auto) 0.3 (0.0-0.7) 10^3/uL Baso # (Auto) 0.1 (0.0-0.1) 10^3/uL Absolute Nucleated RBC 0.00 x10^3/uL Nucleated RBC % 0.1 /100WBC Sodium 139 (135-145) mmol/L Potassium 4.7 (3.5-5.0) mmol/L Chloride 96 L (101-111) mmol/L Carbon Dioxide 37 H (21-32) mmol/L Anion Gap 6.0 (6-13) BUN 29 H (6-20) mg/dL Creatinine 0.7 (0.4-1.0) mg/dL Estimated GFR (MDRD) 82 L (>89) Glucose 242 H (70-100) mg/dL Calcium 8.9 (8.5-10.3) mg/dL Total Bilirubin 0.4 (0.2-1.0) mg/dL AST 17 (10-42) IU/L ALT 25 (10-60) IU/L Alkaline Phosphatase 67 (42-121) IU/L Total Protein 6.6 L (6.7-8.2) g/dL Albumin 3.2 (3.2-5.5) g/dL Globulin 3.4 (2.1-4.2) g/dL Albumin/Globulin Ratio 0.9 L (1.0-2.2) ABX Reporting Has patient been on IV antibiotics over the past 48 hours?: Yes Sepsis Event Note (H) - Evaluation Current Stage of Sepsis: Ruled out Assessment/Plan - Problem List (1) Pyelonephritis Impression: On exam the patient admits to mild nausea, and is tender on her mid-low bilateral back with palpation. She states that she has had some urinary incontinence which is not normal for her and a urinalysis shows UTI, but this sample was not of culture quality. Plan: start oral antibiotics, probiotics. (2) COPD with exacerbation Impression: The patient states that she fell on the last step in her home coming down from the bathroom and fell. She was pinned in between the wall and stairway, without oxygen. She states that she is oxygen dependent. Luckily, her daughter became worried about her, so came by the house at 0730 only to find her mother on her right side on the floor. Each day the patient has improved lung sounds and is found to be breathing with ease. Since she continues to show no evidence of wheezing, no IV steroids will be given. Plan: Continue respiratory care with nebs, incentive spirometry, and continuous oxygen. (3) Dehydration Impression: The patient is found to have an elevated creatinine of 1.5, and a BUN of greater than 70 on admission. Her creatinine today is normal at 0.7, and this dehydration is considered to be resolved. Plan: Monitor out put, watch for fluid overload. (4) Dependence on supplemental oxygen Impression: The patient normally wears 2L nasal cannula continuously. She was found down prior to admission without her oxygen. She was also without the use of her nebulizers due to the power going out. She will be transported with continuous oxygen using her home units that her daughter will bring in. Plan: continue oxygen, respiratory care and vital signs. (5) Chronic back pain Impression: The patient is obese and admits to chronic back pain that has somewhat improved today. Physical therapy recommends rehab stay. Plan: Continue to monitor, encourage activity. Qualifiers: Back pain location: low back pain Back pain laterality: bilateral Sciatica presence: without sciatica Qualified Code(s): M54.5 - Low back pain; G89.29 - Other chronic pain (6) Dementia Impression: The patient has such profound short term memory loss that she has a difficult time telling me how she has been feeling the past few days. Plan: Suggest a higher level of care or a dementia care unit due to frequent falls, and lack of common sense/safety awareness from her dementia. Qualifiers: Dementia type: vascular dementia Dementia behavioral disturbance: without behavioral disturbance Qualified Code(s): F01.50 - Vascular dementia without behavioral disturbance (7) Diabetes mellitus type 2 in obese Impression: The patient is prescribed Metformin and has a very high glucose greater than 300 upon admission. Her metformin will be on hold for this stay. Her hemoglobin A1C was 10.6%, showing poor blood sugar control, I suspect noncompliance. Plan: Carb controlled diet, SSI and Lantus nightly. (8) Diastolic congestive heart failure, NYHA class 3 Impression: The patient is prescribed a moderate dose of lasix at home of 60mg BID, with potassium supplement daily. She is likely a class 3 due to her progressive debility with her falling and overall failing mobility. She remains with a larg e abdominal girth and BLE edema. Plan: Continue oral lasix and potassium, monitor daily weights. Qualifiers: Congestive heart failure chronicity: chronic Qualified Code(s): I50.32 - Chronic diastolic (congestive) heart failure
[2018-02-18] MEDS: levoFLOXacin 250 MG TABLET PO SCH (17:02)
[2018-02-18] MEDS: SACCHAROMYCES BOULARDII 250 MG CAPSULE PO SCH (17:03)
[2018-02-19] MEDS: ACETAMINOPHEN 325 MG TABLET PO PRN (04:55)
[2018-02-19 06:45] LABS: BASOPHILS # (AUTO) 0.1 10^3/uL (0.0-0.1); BASOPHILS % (AUTO) 1.1 %; EOSINOPHILS # (AUTO) 0.3 10^3/uL (0.0-0.7); EOSINOPHILS % (AUTO) 3.6 %; HGB - HEMOGLOBIN 12.4 g/dL (12.0-16.0); LYMPHOCYTES # (AUTO) 1.2 10^3/uL (1.5-3.5); LYMPHOCYTES % (AUTO) 16.5 %; MEAN CORPUSCULAR HEMOGLOBIN 29.7 pg (27.0-31.0); MEAN CORPUSCULAR HGB CONC 32.4 g/dL (32.0-36.0); MEAN CORPUSCULAR VOLUME 91.8 fL (81.0-99.0); MONOCYTES # (AUTO) 0.6 10^3/uL (0.0-1.0); MONOCYTES % (AUTO) 8.4 %; NEUTROPHILS # (AUTO) 4.9 10^3/uL (1.5-6.6); NEUTROPHILS % (AUTO) 70.4 %; PLT - PLATELET COUNT 115 10^3/uL (130-450); RED BLOOD COUNT 4.16 10^6/uL (4.20-5.40); RED CELL DISTRIBUTION WIDTH 13.5 % (12.0-15.0)
[2018-02-19 06:53] LABS: ALBUMIN/GLOBULIN RATIO 0.8 (1.0-2.2); ALKALINE PHOSPHATASE 64 IU/L (42-121); ALT ALANINE AMINOTRANSFERASE 23 IU/L (10-60); AST ASPARTATE AMINOTRANSFERASE 17 IU/L (10-42); BILIRUBIN,TOTAL < 0.2 mg/dL (0.2-1.0); BUN - BLOOD UREA NITROGEN 25 mg/dL (6-20); CALCIUM 8.9 mg/dL (8.5-10.3); CARBON DIOXIDE - CO2 39 mmol/L (21-32); CHLORIDE 93 mmol/L (101-111); CREATININE 0.6 mg/dL (0.4-1.0); GFR - MDRD 98 (>89); GLUCOSE 202 mg/dL (70-100); SODIUM 140 mmol/L (135-145); TOTAL PROTEIN 6.7 g/dL (6.7-8.2)
[2018-02-19] MEDS: BUDESONIDE 0.5 MG/2 ML NEB INH SCH (07:46)
[2018-02-19] MEDS: IPRATROPIUM/ALBUTEROL 3 ML NEB INH SCH (07:46)
[2018-02-19 07:49] VITALS: BP 132/45
[2018-02-19] MEDS: SACCHAROMYCES BOULARDII 250 MG CAPSULE PO SCH (08:11)
[2018-02-19] MEDS: INSULIN ASPART 300 UNIT/3 ML PEN SUBQ SCH (08:12)
[2018-02-19] MEDS: FUROSEMIDE 20 MG TABLET PO SCH (08:14)
[2018-02-19] MEDS: DOCUSATE SODIUM 250 MG CAPSULE PO SCH (09:08)
[2018-02-19] MEDS: CHOLECALCIFEROL 5,000 UNIT CAPSULE PO SCH (09:08)
[2018-02-19] MEDS: levoFLOXacin 250 MG TABLET PO SCH (09:09)
[2018-02-19] MEDS: POLYETHYLENE GLYCOL 3350 17 GM PACKET PO SCH (09:10)
[2018-02-19] MEDS: MULTIVITAMIN TABLET PO SCH (09:10)
[2018-02-19] MEDS: SENNA 8.6 MG TABLET PO SCH (09:10)
[2018-02-19] MEDS: POTASSIUM CHLORIDE 10 MEQ CAPSULE PO SCH (09:10)
[2018-02-19] MEDS: ENOXAPARIN 40 MG/0.4 ML SYRINGE SUBQ SCH (09:10)
[2018-02-19] MEDS: SODIUM CHLORIDE FLUSH 0.9% 10 ML SYRINGE IVP SCH (09:10)
[2018-02-19] MEDS: NYSTATIN POWDER 15 GM TOP SCH (09:10)
[2018-02-19] MEDS: FAMOTIDINE 20 MG TABLET PO SCH (09:10)
[2018-02-19] MEDS: IPRATROPIUM/ALBUTEROL 3 ML NEB INH PRN (10:45)
== END 2018-02-19 11:00 | DRG 191 ==
LOC: EDUNIT# → ED 09:15 → MS2 13:03
PROVIDERS: ADMIT Nurse Practitioner; ATTEND Nurse Practitioner
DX: J44.1 Chronic obstructive pulmonary disease with (acute) exacerbation (principal); N12 Tubulo-interstitial nephritis, not specified as acute or chronic; I50.32 Chronic diastolic (congestive) heart failure; R94.4 Abnormal results of kidney function studies; N17.9 Acute kidney failure, unspecified; Z99.81 Dependence on supplemental oxygen; S50.311A Abrasion of right elbow, initial encounter; S80.211A Abrasion, right knee, initial encounter; W19.XXXA Unspecified fall, initial encounter; R53.83 Other fatigue; E11.9 Type 2 diabetes mellitus without complications; F03.90 Unspecified dementia, unspecified severity, without behavioral disturbance, psychotic disturbance, mood disturbance, and anxiety; E86.0 Dehydration; E66.9 Obesity, unspecified; E78.5 Hyperlipidemia, unspecified; I11.0 Hypertensive heart disease with heart failure; M54.9 Dorsalgia, unspecified; G89.29 Other chronic pain; Z91.81 History of falling; W10.9XXA Fall (on) (from) unspecified stairs and steps, initial encounter
CPT/HCPCS: 36415; 71045; 80053; 81001; 81003; 82550; 83036; 83605; 83690; 83735; 84100; 84484; 85025; 87070; 87086; 87205; 93005; 93306; 94640; 96360; 99284